=== PATIENT | female | born 1975 | race African-American/Black ===

== ENCOUNTER 2017-12-28 23:08 | Emergency (ER) | payer MEDICAID ==
[~2017-12-28] VITALS: Ht 172.7 cm; Wt 77.2 kg
[2017-12-29] MEDS ORDERED: KETOROLAC 60MG/2ML VIAL IM ONE (06:45)
[2017-12-29 08:42] VITALS: BP 118/68
== END 2017-12-29 08:57 | disposition home or self-care (01) ==
LOC: ER 12-29 02:10
DX: J02.9 Acute pharyngitis, unspecified (principal); J06.9 Acute upper respiratory infection, unspecified; Z90.49 Acquired absence of other specified parts of digestive tract
CPT/HCPCS: 87070; 87077; 87430; 96372; 99284; J1885

== ENCOUNTER 2021-04-25 16:05 | Inpatient (IN) | payer MEDICAID, OTHER ==
[~2021-04-25] VITALS: Ht 172.7 cm; Wt 80.7 kg
[2021-04-25] MEDS ORDERED: SODIUM CHLORIDE 0.9% 1,000 ML IV ONE (18:45)
[2021-04-25] MEDS ORDERED: MORPHINE SULFATE 4 MG/ML CPJ (NOT FOR IM USE) IV STA (18:45)
[2021-04-25] MEDS ORDERED: ONDANSETRON HCL 4MG/2ML INJ IV STA (18:45)
[2021-04-25] MEDS ORDERED: KETOROLAC 30MG/ML VIAL IV STA (18:45)
[2021-04-25] MEDS ORDERED: MORPHINE SULFATE 2 MG/ML CPJ (NOT FOR IM USE) IV NR (18:59)
[2021-04-25 19:14] LABS: BASOPHILS % 0.8 % (0.0-2.0); EOSINOPHILS % 0.9 % (0.0-5.0); HEMATOCRIT. 37.1 % (36.0-48.0); HEMOGLOBIN. 12.9 g/dL (12.0-16.0); LYMPHOCYTES % 29.2 % (20.0-50.0); MEAN CORPUSCULAR HEMOGLOBIN 31.8 pg (28.0-32.0); MEAN CORPUSCULAR VOLUME 91.2 fL (81.0-99.0); MEAN PLATELET VOLUME 8.4 fl (7.4-10.4); NEUTROPHILS % 60.1 % (40.0-76.0); PLATELET 233 x1000/uL (130-400); RED BLOOD CELL COUNT 4.07 mill/uL (4.2-5.4); RED CELL DISTRIBUTION WIDTH 13.5 % (11.6-14.6)
[2021-04-25 19:24] LABS: PARTIAL THROMBOPLASTIN TIME 25.7 sec (23.4-31.0); PROTHROMBIN TIME 10.3 sec (9.6-11.0)
[2021-04-25 19:25] LABS: CHLORIDE 109 mEq/L (98-107)
[2021-04-25 19:29] LABS: HCG SCREEN NEGATIVE
[2021-04-25] MEDS ORDERED: IOHEXOL-300 100 ML BOTTLE ONE (21:39)
[2021-04-26] MEDS ORDERED: MAGNESIUM/ALUMINUM HYDROXIDE/SIMETHICONE 30ML UDC PO PRN (03:15)
[2021-04-26] MEDS ORDERED: ACETAMINOPHEN 325MG TABLET PO PRN (03:15)
[2021-04-26] MEDS ORDERED: ONDANSETRON HCL 4MG/2ML INJ IV PRN (03:15)
[2021-04-26] MEDS ORDERED: HYDROMORPHONE HCL/PF 2MG/ML CPJ IV PRN (03:15)
[2021-04-26] MEDS ORDERED: DOCUSATE SODIUM 100MG CAPSULE PO PRN (03:15)
[2021-04-26] MEDS ORDERED: HYDROCODONE/ACETAMINOPHEN 5/325MG TABLET PO PRN (03:15)
[2021-04-26] MEDS ORDERED: CLONIDINE 0.1MG TABLET PO PRN (03:15)
[2021-04-26 09:30] VITALS: BP 113/58
[2021-04-26] MEDS ORDERED: HYDR200T35 PO (10:24)
[2021-04-26 12:00] VITALS: BP 110/58
[2021-04-26] MEDS: HYDROXYCHLOROQUINE SULFATE 200MG TABLET PO SCH ×2 (12:10→17:50)
[2021-04-26 16:00] VITALS: BP 100/62
[2021-04-26] MEDS ORDERED: NALOXONE HCL 0.4MG/ML VIAL IV PRN (17:45)
[2021-04-26 19:32] VITALS: BP 113/58
[2021-04-26 20:00] VITALS: BP 110/65
== END 2021-04-26 21:58 | disposition short-term general hospital (02) | DRG 440 ==
LOC: ER 16:05 → MICUSO 22:41 → 6WST 04-26 07:54 → MICUSO 04-26 08:30 → 6EST 04-26 08:38
PROVIDERS: ADMIT Hospitalist; ATTEND Hospitalist
DX: K85.90 Acute pancreatitis without necrosis or infection, unspecified (principal); M54.2 Cervicalgia; Z20.822 Contact with and (suspected) exposure to COVID-19; V89.2XXA Person injured in unspecified motor-vehicle accident, traffic, initial encounter; Y93.89 Activity, other specified; Y92.89 Other specified places as the place of occurrence of the external cause; Y99.8 Other external cause status; Z79.899 Other long term (current) drug therapy
CPT/HCPCS: 36415; 71045; 71260; 72070; 72100; 74177; 80053; 84484; 84703; 85025; 87426; 93005; 93970; 99285; J1170; J1885; J2270; J2405; J7030; Q9967